=== PATIENT | female | born 1980 | race Caucasian/White ===

== ENCOUNTER 2018-01-31 20:14 | Emergency (ER) | payer OTHER ==
[2018-01-31] MEDS ORDERED: ONDANSETRON HCL INJ/PF 4 MG/2 ML SDV ONE (20:31)
[2018-01-31] MEDS ORDERED: ONDANSETRON HCL INJ/PF 4 MG/2 ML SDV IV ONE (20:33)
[2018-01-31] MEDS ORDERED: FENTANYL CITRATE INJ/PF 100 MCG/2 ML AMPUL IV ONE (20:33)
[2018-01-31] MEDS ORDERED: KETAMINE HCL INJ 500 MG/10 ML VIAL IV ONE (20:36)
--- NOTE | 2018-01-31 20:47 | RADIOLOGY REPORT (SQ) ---
EXAM DESCRIPTION: ANKLE LEFT AP/LATERAL COMPLETED DATE/TIME: 01/31/2018 8:36 pm REASON FOR STUDY: injury L ankle/ deformity COMPARISON: None. NUMBER OF VIEWS: Three views. TECHNIQUE: AP, lateral, and oblique radiographic images acquired of the left ankle. LIMITATIONS: None. FINDINGS: MINERALIZATION: Normal. BONES: Tri malleolar fracture with posterior subluxation of the talus with respect to the tibia. JOINTS: No effusions. SOFT TISSUES: No soft tissue swelling. No foreign body. OTHER: No other significant finding. IMPRESSION: Tri malleolar fracture with posterior subluxation of the talus with respect to the tibia . TECHNICAL DOCUMENTATION: JOB ID: [id number] [employer]- All Rights Reserved Reading location - IP/workstation name: [email or web address]
--- NOTE | 2018-01-31 20:54 | ER Document Report ---
ED Extremity Problem, Lower - General Mode of Arrival: Ambulatory Information source: Patient TRAVEL OUTSIDE OF THE [place] IN LAST 30 DAYS: No <VERENA GUTIERREZ - Last Filed: 02/01/18 00:22> <RON BARONE - Last Filed: 02/01/18 01:41> - General Chief Complaint: Ankle Injury Stated Complaint: ANKLE INJURY Time Seen by Provider: 01/31/18 20:19 Notes: Patient is a 37 year old female presenting to the emergency department complaining of ankle pain secondary a mechanical trip and fall. Patient sates she and her family are visiting from [place] at [facility] when fell off of a skin board and twisted her ankle backwards. Patient states she heard something crack and had immediate pain. Patient denies any nausea, vomiting, abdominal pain, neck pain, hip pain, loss of consciousness or head trauma. (VERENA GUTIERREZ) - Related Data Allergies/Adverse Reactions: minocycline Allergy (Verified 01/31/18 20:22) Past Medical History - General Information source: Patient - Social History Smoking Status: Unknown if Ever Smoked Family History: Reviewed & Not Pertinent <VERENA GUTIERREZ - Last Filed: 02/01/18 00:22> Review of Systems - Review of Systems Constitutional: No symptoms reported EENT: No symptoms reported Cardiovascular: No symptoms reported Respiratory: No symptoms reported Gastrointestinal: No symptoms reported Genitourinary: No symptoms reported Female Genitourinary: No symptoms reported Musculoskeletal: See HPI Skin: No symptoms reported Hematologic/Lymphatic: No symptoms reported Neurological/Psychological: No symptoms reported -: Yes All other systems reviewed and negative <VERENA GUTIERREZ - Last Filed: 02/01/18 00:22> Physical Exam <VERENA GUTIERREZ - Last Filed: 02/01/18 00:22> <RON BARONE - Last Filed: 02/01/18 01:41> - Vital signs Vitals: Pulse Resp BP Pulse Ox 78 21 H 116/76 100 01/31/18 20:36 01/31/18 20:36 01/31/18 20:36 01/31/18 20:36 - Notes Notes: GENERAL: Alert, interacts well. No acute distress. HEAD: Normocephalic, atraumatic. EYES: Pupils equal, round, and reactive to light. Extraocular movements intact. ENT: Oral mucosa moist, tongue midline. NECK: Full range of motion. Supple. Trachea midline. LUNGS: Clear to auscultation bilaterally, no wheezes, rales, or rhonchi. No respiratory distress. HEART: Regular rate and rhythm. No murmurs, gallops, or rubs. ABDOMEN: Soft, non-tender. Non-distended. Bowel sounds present in all 4 quadrants. EXTREMITIES: Moves all 4 extremities spontaneously. Deformity to the left ankle , good capillary refill. Sensations intact. .Radial and dorsalis pedis pulses 2/ 4 bilaterally. No cyanosis. NEUROLOGICAL: Alert and oriented x3. Normal speech. PSYCH: Normal affect, anxious. SKIN: Warm, dry, normal turgor. No rashes or lesions noted. (VERENA GUTIERREZ) Course <VERENA GUTIERREZ - Last Filed: 02/01/18 00:22> - Diagnostic Test Radiology reviewed: Image reviewed, Reports reviewed <RON BARONE - Last Filed: 02/01/18 01:41> - Re-evaluation Re-evalutation: 01/31/18 20:[address] Damon who stated to reduce the ankle, place a splint and to follow up with himself or Orthopedics in [place]. 01/31/18 20:58 Consulted [facility] in [place] who states they are paging a specialist for the patient to follow up with. (VERENA GUTIERREZ) 01/31/18 23:19 Patient is a 37-year-old female who presents with a left ankle deformity after a skimboard accident while on vacation. X-rays showed a trimalleolar fracture with some subluxation of the tibia and the talus. Patient had a procedural sedation and reduction which was tolerated well. Patient will be going back to [place] this weekend. [facility] where she plans on following up and they will see the patient in the office when [facility]. In the meantime, if she has any pain, tingling, cold sensation or any other concerns she is to return to the emergency department. Understands and agrees with plan. Stable for discharge. (RON BARONE) - Vital Signs Vital signs: Temp Pulse Resp BP Pulse Ox 67 21 H 110/63 99 01/31/18 22:24 01/31/18 23:15 01/31/18 23:15 01/31/18 23:15 Procedures <VERENA GUTIERREZ - Last Filed: 02/01/18 00:22> - Conscious Sedation Conscious sedation Time started: 21:31 Time completed: 21:36 Consent obtained: Yes Prior complications: Procedural sedation Normal healthy pt.: P1. - ASA Classification Airway Evaluation: Normal anatomy Mallampati Classification: Class 1 Used during procedure: Suction available, IV access obtained, Pulse ox on pt., die inspector on pt. Medications administered: Ketamine Reversal agents: None I personally performed/intraservice time: Sedation, Procedure, 30 min or less, 31-45 min Complications: No - Immobilization Left Ankle Pre-Proc Neuro Vasc Exam: Normal Immobilizer type: Long leg posterior Performed by: Provider, PCT Post-Proc Neuro Vasc Exam: Normal Alignment checked and good: Yes - Joint Reduction/Fracture Care Left Ankle Time completed: 21:45 Consent obtained: Yes Conscious sedation: Yes Pre-procedure NV exam: Yes Fracture: Closed Manipulation comment: distraction, pressure on ant tib Post-procedure NV exam: Yes Post-reduction x-ray: Joint reduced Reduction attempts: 1 Complications: No <RON BARONE - Last Filed: 02/01/18 01:41> - Conscious Sedation Conscious sedation Notes: Please see nurse's note for additional information (RON BARONE) Critical Care Note - Critical Care Note Total time excluding time spent on procedures (mins): 15 - Evaluation and management of ankle deformity, consultation with specialists, counseling of patient and family <RON BARONE - Last Filed: 02/01/18 01:41> Discharge <VERENA GUTIERREZ - Last Filed: 02/01/18 00:22> <RON BARONE - Last Filed: 02/01/18 01:41> - Discharge Clinical Impression: Trimalleolar fracture of left ankle Qualifiers: Encounter type: initial encounter Fracture type: closed Qualified Code(s): S82.852A - Displaced trimalleolar fracture of left lower leg, initial encounter for closed fracture Condition: Stable Disposition: HOME, SELF-CARE Instructions: Use of Crutches ([facility]), Fracture ([facility]), Ice & Elevation ([facility]) Additional Instructions: Please call for an appointment with the orthopedic doctor in [place] in the morning. Please schedule it for when you are going to be home. Return immediately if you have any further concerns or symptoms. Prescriptions: Cyclobenzaprine HCl [Flexeril 10 Mg Tablet] 10 mg PO TID #30 tablet Oxycodone HCl/Acetaminophen [Percocet 5-325 mg Tablet] 1 - 2 tab PO Q4H PRN #15 tablet PRN Reason: Scribe Attestation: 02/01/18 01:40 I personally performed the services described in the documentation, reviewed and edited the documentation which was dictated to the scribe in my presence, and it accurately records my words and actions. (RON BARONE) Scribe Documentation - Scribe Written by Meghan:: Meghan Morris, 01/31/2018 20:59 acting as scribe for :: Wagner <VERENA GUTIERREZ - Last Filed: 02/01/18 00:22>
[2018-01-31] MEDS ORDERED: KETAMINE HCL INJ 500 MG/10 ML VIAL ONE (21:22)
[2018-01-31] MEDS ORDERED: METOCLOPRAMIDE HCL INJ/PF 10 MG/2 ML SDV ONE (21:36)
--- NOTE | 2018-01-31 21:56 | RADIOLOGY REPORT (SQ) ---
EXAM DESCRIPTION: ANKLE LEFT AP/LATERAL COMPLETED DATE/TIME: 01/31/2018 9:50 pm REASON FOR STUDY: post reduction COMPARISON: 01/31/2018 NUMBER OF VIEWS: Two views. TECHNIQUE: AP and lateral radiographic images acquired of the left ankle. LIMITATIONS: None. FINDINGS: MINERALIZATION: Normal. BONES: Reduction of the previously noted fracture dislocation. In plaster. JOINTS: No effusions. SOFT TISSUES: No soft tissue swelling. No foreign body. OTHER: No other significant finding. IMPRESSION: Reduction of the previously noted fracture dislocation. In plaster. TECHNICAL DOCUMENTATION: JOB ID: [id number] [employer]- All Rights Reserved Reading location - IP/workstation name: [email or web address]
[2018-01-31] MEDS ORDERED: HYDROCODONE/ACETAMINOPHEN 5-325 MG (6 TAB/ER DISP) PO PRN (23:12)
[2018-01-31] MEDS ORDERED: ONDANSETRON ODT 4 MG TAB (6 TAB/ER DISP) PO PRN (23:13)
[2018-01-31 23:18] VITALS: BP 110/63
== END 2018-01-31 23:29 | disposition home or self-care (01) ==
LOC: ER 20:14
PROC: 0QSHXZZ Reposition Left Tibia, External Approach (ICD-10-PCS; principal; 2018-01-31)
DX: S82.852A Displaced trimalleolar fracture of left lower leg, initial encounter for closed fracture (principal); M25.572 Pain in left ankle and joints of left foot; X50.1XXA Overexertion from prolonged static or awkward postures, initial encounter
CPT/HCPCS: 99283; 99152; 96374; 96375; 73600; 27818; J3010; J3490; J2765; J2405